=== PATIENT | male | born 1960 | race Caucasian/White ===

== ENCOUNTER 2023-05-06 22:08 | Emergency (ER) | payer BC ==
[~2023-05-06 22:08] MED LIST: LIDOCAINE PATCH REMOVAL MC SCH
[2023-05-06 22:26] VITALS: BP 139/86; PULSE 70; RESP 22; TEMP 97.6; BMI 30.4
[2023-05-06] MEDS ORDERED: LIDOCAINE 5% TOPICAL PATCH TP ONE (23:03)
[2023-05-06] MEDS ORDERED: ACETAMINOPHEN 500 MG TABLET (FP) PO ONE (23:03)
[2023-05-06] MEDS ORDERED: ACETAMINOPHEN 325 MG TABLET (FP) ONE (23:15)
[2023-05-06] MEDS ORDERED: LIDOCAINE 4% PATCH TP ONE (23:16)
[2023-05-06] MEDS ORDERED: KETOROLAC TROMETHAMINE 30 MG/1 ML VIAL IM ONE (23:57)
[2023-05-07] MEDS ORDERED: KETOROLAC TROMETHAMINE 30 MG/1 ML VIAL ONE (00:10)
== END 2023-05-07 00:27 | disposition home or self-care (01) ==
LOC: JER 22:08
PROC: 3E0233Z Introduction of Anti-inflammatory into Muscle, Percutaneous Approach (ICD-10-PCS; principal; 2023-05-06)
DX: R07.81 Pleurodynia (principal)
CPT/HCPCS: 71101-TC-LT-FY; 93005; 93010; 99284-25